=== PATIENT | female | born 1995 | race Caucasian/White ===

== ENCOUNTER 2022-02-19 11:47 | Outpatient (CLI) | payer OTHER, SELFPAY ==
[2022-02-19 12:20] LABS: Hematocrit 36.4 % (37.0-47.0); Hemoglobin 12.1 g/dL (12.0-15.0); Mean Corpuscular HGB Conc 33.2 g/dl (32-36); Mean Corpuscular Hemoglobin 31.5 pg (26-34); Mean Corpuscular Volume 94.8 fl (80-100); Mean Platelet Volume 11.7 fl (7.4-10.4); Platelet Count Result 168 k/mm3 (150-375); Red Blood Count 3.84 M/mm3 (4.2-5.4); Red Cell Distribution Width 13.5 % (11.5-14.5); White Blood Count 9.5 K/mm3 (4.5-10.0)
== END 2022-02-19 11:48 | disposition home or self-care (01) ==
LOC: ANHLAB 11:50
PROVIDERS: Visit Provider Obstetrics & Gynecology
DX: Z34.93 Encounter for supervision of normal pregnancy, unspecified, third trimester (principal); Z3A.00 Weeks of gestation of pregnancy not specified
CPT/HCPCS: 36415; 85027; 86850; 86900; 86901

== ENCOUNTER 2022-02-20 05:37 | Inpatient (IN) | payer OTHER, SELFPAY ==
--- NOTE | 2022-01-27 15:10 | PC.NURSE ---
Patient states baby is breech. Patient states Dr Berrios told her if baby does not turn head down by 02/03/22,she will be schedule for C/S at 39 wks Patient given requisition for pre-op lab if she is a C/S and was given copy of pre-op instructions
[2022-02-20] VITALS (57 sets, daily range): BP systolic 101–119; BP diastolic 36–75; PULSE 48–107; RESP 13–20; TEMP 36.2–36.6; O2SAT 94–100; BMI 31.6
--- OUTSIDE RECORDS SUMMARY | 2022-02-20 05:42 | XMS_ITS | Encounter Summary ---
:1995 Author Care Team Providers Name Role Phone Richi Lopez MD Primary Care Provider [phone] Reason for Visit None recorded. Assessment and Plan 1. Oligohydramnios ? US, obstetric, biophysical profile + non-stress test Discussion Note: None recorded.Patient educational handouts: No information available. Plan of Care Reminders Provider Appointments Surg Post Op 02/27/2022 Nanette breaux MD 1:15PM Lab None recorded. ? ? Referral None recorded. ? ? Procedures None recorded. ? ? Surgeries None recorded. ? ? Imaging US, Obstetric, Biophysical 02[facility]06[facility]2022 [facility] Profile + Non-stress Test Medications Name Start Date ? ? ? Medications Administered None recorded. Vitals None recorded. Results Lab Results None recorded. Allergies Code Code System Name Reaction Severity Onset NKDA ? ? ? Problems Name Status Onset Date Source ? Intrauterine Synechiae Active 07/23/2021 ? Vaccination Not Done Active 07/23/2021 ? Active 08/19/2021 ? Breech Presentation Active 01/02/2022 ? Placental Abnormality, Antepartum Active ? ? Excessive Weight Gain Active ? ? Procedures Date Name Performed by ? ? Removal of Ovarian Cyst(s) Information n ot available 02/03/2022 US, Obstetric, Follow-up [place] [address] [place] [address]
--- OUTSIDE RECORDS SUMMARY | 2022-02-20 05:42 | XMS_ITS ---
:1995 Author Care Team Providers Name Role Phone JACKELINE BORDEN MD Primary Care Provider [phone] Allergies Code Code System Name Reaction Severity Status Onset NKDA ? Medications Name Status Start Date Stop Date ? ? Gianvi (28) 3 mg-0.02 mg tablet Completed ? 04/19/2021 TAKE 1 TABLET BY MOUTH EVERY DAY Active ? Not available Problems Name Status Onset Date Source ? Intrauterine Synechiae Active 07/23/2021 ? Vaccination Not Done Active 07/23/2021 ? Active 08/19/2021 ? Breech Presentation Active 01/02/2022 ? Placental Abnormality, Antepartum Active ? ? Excessive Weight Gain Active ? ? Procedures Date Name Performed by ? ? Removal of Ovarian Cyst(s) Information n ot available 04/19/2021 US, Pelvis, Complete [place] [address] [place] [address] (Work Place) 08/19/2021 US, Obstetric, Nuchal Translucency Jose lopez [address] [place] [address] (Work Place) 10/15/2021 US, Obstetric, 2Nd or 3Rd Trimester Tamela milligan [address] [place] [address] (Work [address]) 11/18/2021 US, Obstetric, Follow-up [place] [address] [place] [address] [phone]
--- OUTSIDE RECORDS SUMMARY | 2022-02-20 05:42 | XMS_ITS | Encounter Summary ---
:1995 Author Care Team Providers Name Role Phone Richi Lopez MD Primary Care Provider [phone] Reason for Visit OB visit Assessment and Plan Assessment Note Patient is ___weeks . Discussed plan. 1. Routine care Discussion Note: None recorded.Patient educational handouts: No information available. Plan of Care Reminders Provider Appointments Surg Post Op 02/27/2022 1:15PM Nanette Berrios MD Lab None recorded. ? ? Referral None recorded. ? ? Procedures None recorded. ? ? Surgeries None recorded. ? ? Imaging None recorded. ? ? Medications Name Start Date ? ? ? Medications Administered None recorded. Vitals Height Weight BMI Blood Pressure 5 ft 4.5 in 196 lbs 33.1 kg/m2 110/74 mm[Hg] Results Lab Results None recorded. Allergies Code [...] n ot available 02/03/2022 US, Obstetric, Follow-up [place] [address]
--- OUTSIDE RECORDS SUMMARY | 2022-02-20 05:42 | XMS_ITS | Encounter Summary ---
:1995 Author Care Team Providers Name Role Phone Richi Lopez MD Primary Care Provider [phone] Reason for Visit None recorded. Assessment and Plan 1. Oligohydramnios ? US, obstetric, biophysical profile Discussion Note: None recorded.Patient educational handouts: No information available. Plan of Care Reminders Provider Appointments Surg Post Op 02/27/2022 Nanette breaux MD 1:15PM Lab None recorded. ? ? Referral None recorded. ? ? Procedures None recorded. ? ? Surgeries None recorded. ? ? Imaging US, Obstetric, Biophysical 02/13/2022 Jewels posey Profile Medications Name Start Date ? ? ? [...] n ot available 02/03/2022 US, Obstetric, Follow-up [place] [address] [place] [address]
--- OUTSIDE RECORDS SUMMARY | 2022-02-20 05:43 | XMS_ITS | Encounter Summary ---
:1995 Author Care Team Providers Name Role Phone Richi Lopez MD Primary Care Provider [phone] Reason for Visit OB visit Assessment and Plan 1. Routine care 2. Breech presentation Discussion Note: None recorded.Patient educational handouts: No [...] BMI Blood Pressure 5 ft 4.5 in 187 lbs 31.6 kg/m2 114/78 mm[Hg] Results Lab Results None recorded. Allergies [...] of Ovarian Cyst(s) Information n ot available 01/02/2022 US, Obstetric, Follow-up [place] [address] [place] [address] (Prlu
--- OUTSIDE RECORDS SUMMARY | 2022-02-20 05:43 | XMS_ITS | Encounter Summary ---
:1995 Author Care Team Providers Name Role Phone Richi Lopez MD Primary Care Provider [phone] Reason for Visit OB visit Assessment and Plan Assessment Note Patient is ___weeks . Discussed plan. Discussion Note: None recorded.Patient educational handouts: No [...] BMI Blood Pressure 5 ft 4.5 in 193 lbs 32.6 kg/m2 115/71 mm[Hg] Results Lab Results None recorded. Allergies [...] n ot available 01/02/2022 US, Obstetric, Follow-up [place] [address] [place] [address]
--- OUTSIDE RECORDS SUMMARY | 2022-02-20 05:43 | XMS_ITS | Encounter Summary ---
:1995 Author Care Team Providers Name Role Phone Richi Lopez MD Primary Care Provider [phone] Reason for Visit None recorded. Assessment and Plan 1. Routine care Discussion Note: None recorded.Patient [...] Ovarian Cyst(s) Information n ot available 01/02/2022 , Obstetric, Follow-up [place] [address] [place] [address] (Work Place) Vaccine List None recorded. Social History Tobacco Smoking Status Never Smoker What is the highest grade or level of school you [employer]
--- OUTSIDE RECORDS SUMMARY | 2022-02-20 05:43 | XMS_ITS | Encounter Summary ---
:1995 Author Care Team Providers Name Role Phone Richi Lopez MD Primary Care Provider [phone] Reason for Visit OB visit Assessment and Plan 1. Breech presentation ? section (SURG) Discussion Note: None recorded.Patient educational handouts: No information available. Plan of Care Reminders Provider Appointments Surg Post Op 02/27/2022 1:15PM Nanette Berrios MD Lab None recorded. ? ? Referral None recorded. ? ? Procedures None recorded. ? ? Surgeries Section (SURG) 02/20/2022 [facility] None recorded. ? ? Medications Name Start Date ? ? ? Medications Administered None recorded. Vitals Height Weight BMI Blood Pressure 5 ft 4.5 in 192 lbs 32.4 kg/m2 117/78 mm[Hg] Results Lab Results None recorded. Allergies [...] 02/03/2022 US, Obstetric, Follow-up [place] [address],
--- OUTSIDE RECORDS SUMMARY | 2022-02-20 05:43 | XMS_ITS | Encounter Summary ---
:1995 Author Care Team Providers Name Role Phone Richi Lopez MD Primary Care Provider [phone] Reason for Visit OB visit Assessment and Plan 1. Routine care 2. Placental abnormality, antepartum 3. Excessive weight gain Discussion Note: None recorded.Patient educational handouts: No [...] BMI Blood Pressure 5 ft 4.5 in 183 lbs 30.9 kg/m2 112/76 mm[Hg] Results Lab Results None recorded. Allergies [...] of Ovarian Cyst(s) Information n ot available Vaccine List None recorded. Social History Tobacco Smoking Status Never Smoker What is the highest grade or level of school you have [employer] [id number]
--- OUTSIDE RECORDS SUMMARY | 2022-02-20 05:43 | XMS_ITS | Encounter Summary ---
:1995 Author Care Team Providers Name Role Phone Richi Lopez MD Primary Care Provider [phone] Reason for Visit None recorded. Assessment and Plan 1. Reduced movement ? non-stress test Discussion Note: None recorded.Patient educational handouts: No information available. Plan of Care Reminders Provider Appointments Surg Post Op 02/27/2022 1:15PM Nanette Berrios MD Lab None recorded. ? ? Referral None recorded. ? ? Procedures None recorded. ? ? Surgeries None recorded. ? ? Imaging Non-stress Test 02/06/2022 [place] Medications Name Start Date ? ? ? [...] n ot available 02/03/2022 US, Obstetric, Follow-up [place] [address] [place] [address] (Work Place) 02/06/2022 US, Obstetric, Biophysical Profile + Jewels posey Non-
--- OUTSIDE RECORDS SUMMARY | 2022-02-20 05:43 | XMS_ITS | Encounter Summary ---
:1995 Author Care Team Providers Name Role Phone Richi Lopez MD Primary Care Provider [phone] Reason for Visit None recorded. Assessment and Plan 1. AND/OR placental disorder affe cting management of mother ? US, obstetric, follow-up Discussion Note: None recorded.Patient educational handouts: No information available. Plan of Care Reminders Provider Appointments Surg Post Op 02/27/2022 1:15PM Nanette Berrios MD Lab None recorded. ? ? Referral None recorded. ? ? Procedures None recorded. ? ? Surgeries None recorded. ? ? Imaging US, Obstetric, 01/02/2022 [place] Follow-up Medications Name Start Date ? ? ? [...] n ot available 01/02/2022 US, Obstetric, Follow-up [place] [address] [place] [address] (Work Place) Vaccine Lis
--- OUTSIDE RECORDS SUMMARY | 2022-02-20 05:43 | XMS_ITS | Encounter Summary ---
:1995 Author Care Team Providers Name Role Phone Richi Lopez MD Primary Care Provider [phone] Reason for Visit None recorded. Assessment and [...] None recorded. ? ? Imaging US, Obstetric, 02/03/2022 [place] Follow-up Medications Name Start Date ? ? [...] n ot available 02/03/2022 US, Obstetric, Follow-up [place] [address] [place] [address] (Work Place) Vaccine Lis
--- OUTSIDE RECORDS SUMMARY | 2022-02-20 05:43 | XMS_ITS | Encounter Summary ---
:1995 Author Care Team Providers Name Role Phone Richi Lopez MD Primary Care Provider [phone] Reason for Visit OB visit Assessment and Plan Assessment Note Patient is _34__weeks . Discuss ed plan. 1. Routine care Discussion Note: None [...] ft 4.5 in 192 lbs 32.4 kg/m2 115/72 mm[Hg] Results Lab Results None recorded. Allergies [...] n ot available 01/02/2022 , Obstetric, Follow-up [place] [address] [address]
[2022-02-20] MEDS: LACTATED RINGERS 1,000 ML 999 ML IV CONT (06:30)
--- NOTE | 2022-02-20 06:36 | WPDANESEPP ---
Anes - Eval Pre Procedure Procedure: Operation Date: 02/20/22 07:30 Proposed Procedures p Section - Nanette Berrios MD Date/Time: 02/20/22 06:36 Surgeon: Agustina Preop Diagnosis: Breech presentation Pre Op Diagnosis: C/S Patient Data Age: 26 Gender: F Height: 1.68 m Weight: 89 kg Last Vital Signs Pulse 69 02/20/22 06:31 BP 106/64 02/20/22 06:31 Allergies Allergy/AdvReac Type Severity Reaction Status Date / Time No Known Allergies Allergy Verified 01/27/22 14:52 Home Medications Medication Instructions Recorded Confirmed Type prenat.vits,camilla,[id number] 1 tablet PO HS 01/27/22 01/27/22 History HCG: positive Patient hx anesthesia problems: none Family hx anesthesia problems: none Results Review: All pre-operative results and documents have been reviewed as part of the pre-operative evaluation. FORMERLY [facility], [facility] Past Medical History Medical History (Updated 02/20/22 @ 06:38 by Atilio Wheeler CRNA) Breech presentation Overweight (BMI 25.0-29.9) and not yet delivered Family History Family History (Updated 01/27/22 @ 14:56 by Elier Lazo RN) Mother Crohn disease Sibling Crohn disease Congenital bicuspid aortic valve Social History Social History Substance use: never Spiritual care concerns: No Exam Day of Procedure 02/20/22 06:36 Patient weight: overweight Heart: regular rate and rhythm Lungs: clear to auscultation Airway: Mallampati scale class II Neurological: alert and oriented
--- NOTE | 2022-02-20 06:47 | LDADM ---
This patient, Shanta Hitchcock, was admitted to Labor/Delivery/Recovery 120 on 02/20/22 at 05:37. Plans for labor, pain management and were discussed with patient. Patient/family oriented to hospital policies and general routines including ID bracelet, bed and alarms, visiting hours, pain management, procedures, bathroom and other care routines, personal items, smoking policy, room service/diet and guest tray routines, security routines, and visiting hours. Patient/Family are encouraged to report perceived risks to care and to ask questions if they do not understand what they are told or what they should do. See OBIX for further documentation.
--- NOTE | 2022-02-20 06:56 | PM.IMHP ---
H&P: HPI History of Present Illness Date/Time: 02/20/22 06:56 Chief Complaint: breech Narrative: Shanta is a G1 at 39.1 for primary CS for breech. 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 Also bilobed placenta with band near CI. Review of Systems Review of Systems: All systems reviewed & are unremarkable except as noted in HPI and below PMFSH Past Medical History Medical History (Updated 02/20/22 @ 06:58 by Nanette Berrios MD) Breech presentation Overweight (BMI 25.0-29.9) and not yet delivered Family History Family History (Updated 01/27/22 @ 14:56 by Elier Lazo RN) Mother Crohn disease Sibling Crohn disease Congenital bicuspid aortic valve Social History Social History Smoking status: Never smoker Substance use: never Spiritual care concerns: No Meds Home Medications and Allergies Home Medications Medication Instructions Recorded Confirmed Type prenat.vits,camilla,[id number] 1 tablet PO HS 01/27/22 01/27/22 History Allergies Allergy/AdvReac Type Severity Reaction Status Date / Time No Known Allergies Allergy Verified 01/27/22 14:52 Vital Signs Vital Signs - 24 hr 02/20/22 05:58 02/20/22 06:01 02/20/22 06:16 Pulse Rate 72 76 73 Blood Pressure 109/64 110/72 106/68 Oxygen Delivery 02/20/22 06:31 02/20/22 06:46 02/20/22 06:45 Pulse Rate 69 73 Blood Pressure 106/64 109/69 Oxygen Delivery Room Air Exam Const: General: no acute distress Resp: Effort & Inspection: normal respiratory effort Auscultation: clear to auscultation bilaterally Cardio: Rate: regular rate Rhythm: regular rhythm GI: GI Palp: Yes Soft to palpation Extrem: General: normal to inspection Assessment and Plan Assessment and plan (1) Breech presentation: Code(s): O32.1XX0 - Maternal care for breech presentation, not applicable or unspecified Status: Acute Additional Plan Plan Primary CS Discussed RBA, pt consented, all questions answered. US still breech will proceed.
--- NOTE | 2022-02-20 07:05 | PC.NURSE ---
Dr. Berrios at bedside ultrasound confirmed breech presentation.
--- NOTE | 2022-02-20 07:18 | WPDHPUPDATE1 ---
History and Physical Update Update Date/Time: 02/20/22 07:18 History and Physical has been reviewed, including an updated exam of the patient. There are NO changes in the patient's condition. Risks, benefits, and alternatives have been discussed and questions answered. Patient agrees to proceed with procedure. US still breech
[2022-02-20] MEDS: ceFAZolin 2 GM/D5W 50 ML 2 GM/50 ML BAG IVPB (07:24)
[2022-02-20] MEDS: KETOROLAC 30 MG/ML VIAL (*BKC) IV PUSH (08:20)
[2022-02-20] MEDS: LACTATED RINGERS 1,000 ML 125 ML IV CONT (08:36)
--- NOTE | 2022-02-20 08:38 | PM.OBPRVD ---
OB - Delivery Note Procedure Delivery date: 02/20/22 Procedure: Procedures Operation Date: 02/20/22 07:30 <No data on this case meets the specified criteria> Primary Low transverse section Events: Breech Presentation Route of delivery: Specimen: Yes (placenta) Quantitative Blood Loss (ml): 1,035 Anesthesia type: Spinal Disposition: Floor Complications: none Narrative: The patient was taken to the OR and received spinal anesthesia. She was placed in dorsal supine position with left lateral tilt. SCDs and rodrigues were placed. She was prepped and draped in the normal sterile fashion. A Pfannensteil skin incision was made and carried through to the underlying layer of fascia. The fascia was incised in the midline and then extended laterally using Littlejohn scissors. The muscles were in the midline and the peritoneum was entered bluntly. The peritoneal incision was extended inferiorly and superiorly with care to avoid the bladder. The bladder blade was then inserted, the vesicouterine peritoneum was grasped, incised with Metzenbaum scissors, and a bladder flap created. The bladder blade was reinserted. A low transverse uterine incision was made with a scalpel and extended bluntly. AROM was performed and fluid was noted to be clear. The head was delivered, followed by the remainder of the baby. The baby's oropharynx was suctioned. After 30 seconds, the cord was clamped and cut and the infant was handed off. Cord blood was obtained and the placenta was then removed manually. The uterus was exteriorized. A moist lap sponge was used to curette the endometrium. The uterine incision was then closed with two layers of 0-Vicryl in a running, locking fashion. Several additional sutures were needed for hemostasis. Good hemostasis was noted. Hemaderm was placed. The posterior cul de sac was irrigated with normal saline and cleared of all clot and debris. The uterus was returned to the abdomen. Both lateral gutters were then irrigated. The rectus muscles were inspected and found to be hemostatic. The fascia was reapproximated using 0-Vicryl in running fashion. The subcutaneous tissue was irrigated with normal saline and made hemostatic with Bovie electrocautery. The skin was then closed with absorbable ranjit. Steri strips and a bandage were applied. The uterus was evacuated. The patient tolerated the procedure very well. All counts were correct. She was taken to the recovery room in good condition. Baby Date of : 02/20/22 Time of : 07:52 Weeks of gestation at delivery: 39 Infant gender: Female Weight (pounds): 7 Weight (ounces): 14 presentation: breech Placenta delivery description: Manual Removal Cord Vessel Description: 3 Vessels score one minute: 8 score five minutes: 9
--- NOTE | 2022-02-20 11:20 | PC.NURSE ---
Patient transferred to post room #290 per stretcher from labor and delivery. Support person present. Oriented to unit, room, information board, rooming in, admission packet and security measures. Patient verbalizes understanding.
[2022-02-20] MEDS: OXYTOCIN 30 UNITS/NS 500 ML 30 UNITS/500 ML BAG 125 UNITS IV CONT (11:30)
[2022-02-20] MEDS: DEXTROSE 5%/0.45% SOD CHL 1,000 ML 125 ML IV CONT (15:35)
[2022-02-20] MEDS: HYDROcodone/acetaminophen (*CRX) 5-325 MG TABLET 1 TAB PO (22:45)
[2022-02-20] MEDS: IBUPROFEN 600 MG TABLET PO (22:45)
[2022-02-21 03:15] VITALS: BP 109/57; PULSE 79; RESP 16; TEMP 36.2
[2022-02-21 05:04] LABS: Basophils Percent Auto 0.2 % (0.2-1.2); Eosinophils Percent Auto 0.2 % (0-4.4); Hematocrit 27.8 % (37.0-47.0); Hemoglobin 9.4 g/dL (12.0-15.0); Immature Granulocyte Absolute 0.05 K/mm3 (0.00-0.031); Immature Granulocyte Percent A 0.4 % (0-0.5); Lymphocytes Absolute Auto 1.59 K/mm3 (0.9-3.2); Lymphocytes Percent Auto 13.1 % (18.3-44.2); Mean Corpuscular HGB Conc 33.8 g/dl (32-36); Mean Corpuscular Hemoglobin 32.5 pg (26-34); Mean Corpuscular Volume 96.2 fl (80-100); Mean Platelet Volume 12.2 fl (7.4-10.4); Monocytes Absolute Auto 0.5 K/mm3 (0.1-0.6); Monocytes Percent Auto 4.2 % (2.6-8.5); Neutrophils Percent Auto 81.9 % (45.5-73.1); Platelet Count Result 144 k/mm3 (150-375); Red Blood Count 2.89 M/mm3 (4.2-5.4); Red Cell Distribution Width 13.7 % (11.5-14.5); White Blood Count 12.2 K/mm3 (4.5-10.0)
--- NOTE | 2022-02-21 05:59 | P.PNOB_ITS ---
OB - PN: Subj Subjective Date/time seen: 02/21/22 05:59 Patient comments: no complaints and pain well controlled baby status: doing well and nursing well [place] feeding status: exclusively breast feeding Narrative: POD 1 from primary CS. Doing well. Normal lochia. Eating, ambulating, rodrigues out. OB - PN: Obj Data Labs CBC & Chem 7: 02/21/22 03:18 Labs: Laboratory Results - last 24 hr 02/21/22 03:18 WBC 12.2 H RBC 2.89 L Hgb 9.4 L Hct 27.8 L MCV 96.2 MCH 32.5 MCHC 33.8 RDW 13.7 Plt Count 144 L MPV 12.2 H Immature Gran % (Auto) 0.4 Neut % (Auto) 81.9 H Lymph % (Auto) 13.1 L [place] % (Auto) 4.2 Eos % (Auto) 0.2 Baso % (Auto) 0.2 Lymph # (Auto) 1.59 [place] # (Auto) 0.5 Eos # (Auto) 0.0 Baso # (Auto) 0.0 Abs Immat Gran (auto) 0.05 H Absolute Neuts (auto) 10.0 H Absolute Nucleated RBC 0.0 Nucleated RBC % 0.0 OB - PN A/P Plan day: 1 Plan: routine care Time Spent With Patient Time: Total time spent is greater than 50% in coordination of care (as documented) at patient's floor/unit and/or counseling patient: Exam Narrative: NAD abdomen soft, appropriately tender, incision bandaged Extremities nontender with 1+ edema
[2022-02-21] MEDS: HYDROcodone/acetaminophen (*CRX) 5-325 MG TABLET 1 TAB PO ×3 (07:02→15:10)
[2022-02-21] MEDS: IBUPROFEN 600 MG TABLET PO ×2 (07:02→15:10)
[2022-02-21] MEDS: SIMETHICONE 80 MG TAB.CHEW PO (07:02)
[2022-02-21] MEDS: POLYSACCHARIDE IRON COMPLEX 150 MG CAPSULE PO ×2 (07:02→17:26)
[2022-02-21 07:20] VITALS: BP 103/60; PULSE 71; RESP 16; TEMP 36.8; O2SAT 100
[2022-02-21] MEDS: MULTIVIT/MIN/PREN/FOL AC/IRON TABLET 1 TAB PO (09:21)
[2022-02-21] MEDS: DOCUSATE SODIUM 100 MG CAPSULE PO ×2 (09:21→17:26)
--- NOTE | 2022-02-21 12:21 | WPDANLDPN2 ---
Anes-Prog Note L&D Date/Time: 02/21/22 12:21 Comfortable throughout: section Neuraxial method: spinal Epidural/Spinal procedure site: clean & non-tender Neuro status: Neuro function grossly intact. Cardiovascular status: normal Respiratory status: normal Airway patency: baseline Mental status: baseline Post-Op hydration status: normal Vital Signs: Last Vital Signs Temp 98.2 F 02/21/22 07:20 Pulse 71 02/21/22 07:20 Resp 16 02/21/22 07:20 BP 103/60 02/21/22 07:20 Pulse Ox 100 02/21/22 07:20 O2 Del Method Room Air 02/21/22 07:20 Pain score (VAS): 3 I/O: Intake & Output 02/20/22 02/21/22 02/21/22 23:59 07:59 15:59 Intake Total 2100 120 Output Total 4000 2600 Balance -1900 -2600 120 Patient feedback: Patient satisfied with anesthetic care.
--- NOTE | 2022-02-21 12:21 | WPDANLDNPN2 ---
Anes-Prog Note L&D-Neuraxial Date/Time: 02/21/22 12:21 Neuraxial medications: intrathecal PF morphine Opiod-related complaints: none Patient feedback: Patient satisfied with post-operative pain management.
[2022-02-21 20:30] VITALS: PULSE 88; RESP 18; O2SAT 99
[2022-02-21 20:34] VITALS: BP 140/61; PULSE 88; RESP 18; TEMP 37.1; O2SAT 99
[2022-02-22] MEDS: IBUPROFEN 600 MG TABLET PO ×3 (01:06→13:02)
[2022-02-22] MEDS: SIMETHICONE 80 MG TAB.CHEW PO (01:07)
[2022-02-22] MEDS: HYDROcodone/acetaminophen (*CRX) 5-325 MG TABLET 1 TAB PO ×4 (01:07→17:34)
[2022-02-22 07:10] VITALS: BP 99/57; PULSE 80; RESP 16; TEMP 36.9; O2SAT 99
[2022-02-22] MEDS: DOCUSATE SODIUM 100 MG CAPSULE PO ×2 (08:50→17:34)
[2022-02-22] MEDS: MULTIVIT/MIN/PREN/FOL AC/IRON TABLET 1 TAB PO (08:50)
[2022-02-22] MEDS: POLYSACCHARIDE IRON COMPLEX 150 MG CAPSULE PO ×2 (08:50→17:34)
--- NOTE | 2022-02-22 11:44 | PM.OBPNVD ---
OB - PN: Subj Subjective Date/time seen: 02/22/22 11:44 Patient comments: no complaints, pain well controlled, tolerating diet and flatus present [place] baby status: doing well and nursing well feeding status: exclusively breast feeding OB - PN: Obj Data Labs CBC & Chem 7: 02/21/22 03:18 OB - PN A/P Plan day: 2 Plan: routine care Comments: DC home tomorrow Time Spent With Patient Time: Total time spent is greater than 50% in coordination of care (as documented) at patient's floor/unit and/or counseling patient: Exam Narrative: NAD abdomen soft, appropriately tender, incision CDI Extremities nontender with 1+ edema
[2022-02-22 14:25] VITALS: BP 122/79; PULSE 98; O2SAT 100
--- NOTE | 2022-02-22 14:25 | PC.NURSE ---
This patient is c/o nausea and lightheadedness after showering. Vaginal bleeding small and VSS at this time. Patient currently sitting in chair and starting to feel a bit better after drinking some orange juice. Patient had a meal this morning and was going to try to eat lunch now. Patient has not had much sleep since the delivery on 02/20/22. [id number] Patient reports feeling better and back in bed to get some sleep while infant goes to the nursery for now.
[2022-02-22 21:10] VITALS: BP 124/70; PULSE 81; RESP 18; TEMP 36.8; O2SAT 100
--- NOTE | 2022-02-23 07:12 | PM.OBPNVD ---
OB - PN: Subj Subjective Date/time seen: 02/23/22 07:12 Patient comments: no complaints baby status: nursing well feeding status: exclusively breast feeding Narrative: POD 3 from primary CS. Doing well. Normal lochia. Eating, ambulating, rodrigues out. + flatus. OB - PN: Obj Data Labs CBC & Chem 7: 02/21/22 03:18 OB - PN A/P Assessment and Plan (1) delivery delivered: Code(s): O82 - Encounter for delivery without indication Status: Acute Plan day: 3 Plan: routine care and discharge home Comments: DC instructions given. Time Spent With Patient Time: Total time spent is greater than 50% in coordination of care (as documented) at patient's floor/unit and/or counseling patient: Exam Narrative: NAD abdomen soft, appropriately tender, incision bandaged Extremities nontender with 1+ edema
--- NOTE | 2022-02-23 07:17 | P.DS_ITS ---
DS: Admitting Diagnosis Discharge Date 02/23/22 Admitting Diagnosis IUP 39w, breech DS: Discharge Diagnosis Discharge Diagnosis (1) delivery delivered: Code(s): O82 - Encounter for delivery without indication Status: Acute OB - DS: Summary Hospital Course Hospital Course: Shanta was admitted for primary CS due to breech. She had an uncomplicated delivery and course. She was DCed home on POD3. OB Procedures : Ultrasound OB Procedures Intrapartum: OB Procedures: : None Peripartum Data Infant Delivery Method: Section Procedures: Procedures Operation Date: 02/20/22 07:30 Actual Procedure Side Surgeon p Section Nanette Berrios MD complications: none Status at Discharge Functional status at discharge: independent ambulation Time Spent with Patient Time attestation: Total time spent providing and/or coordinating discharge services: Exam Narrative: NAD abdomen soft, appropriately tender, incision CDI DS: Data Data Completed and Pending Pending studies at discharge: Pending at discharge 02/20/22 07:54 Surgical [PTH] Routine Discharge Plan Discharge Attending physician on discharge: Nanette Berrios Discharging Clinician: Nanette Berrios Anticipated Discharge Date/Time: 02/23/22 11:00 Patient Disposition: Home, Self-Care Activity: may shower, may drive after 2 weeks and pelvic rest Diet: regular Patient Instructions: Antibiotic Form Stand Alone Forms: General Discharge Information Follow-up/Referrals: Nanette Berrios MD [Physician] - 1 Week Discharge Medications: New hydrocodone-acetaminophen 5-325 mg Tablet 1 tablet PO Q4-5H PRN (Reason: Moderate Pain (4-6)) Qty: 30 0RF docusate sodium 100 mg Capsule 100 mg PO BID PRN (Reason: constipation) Qty: 60 0RF ibuprofen 600 mg Tablet 600 mg PO Q6H PRN (Reason: Cramping) Qty: 60 0RF Continued #2 Tablet 1 tablet PO HS Date of admission: 02/20/22 05:37 Primary Care Provider: PHYSICIAN,PUMPING STATION SUPERVISOR Admitting Provider: Nanette Berrios Attending physician on admission: Nanette Berrios Condition: Stable
[2022-02-23 07:33] LABS: Rapid Plasma Reagin Non-Reactive (NonReactive)
[2022-02-23 07:45] VITALS: BP 114/50; PULSE 90; RESP 18; TEMP 36.6; O2SAT 100
[2022-02-23] MEDS: MULTIVIT/MIN/PREN/FOL AC/IRON TABLET 1 TAB PO (07:57)
[2022-02-23] MEDS: DOCUSATE SODIUM 100 MG CAPSULE PO (07:57)
[2022-02-23] MEDS: POLYSACCHARIDE IRON COMPLEX 150 MG CAPSULE PO (07:57)
[2022-02-23] MEDS: IBUPROFEN 600 MG TABLET PO (07:57)
--- NOTE | 2022-02-23 09:03 | PC.NURSE ---
Patient viewed the discharge video Mother & Baby Care, The First Two Weeks . Patient was given the opportunity and encouraged to ask questions. Patient verbalized understanding of information shared and has been given the mother/baby guide for home reference.
--- NOTE | 2022-02-23 15:40 | PC.NURSE ---
[id number] Introductions were made, then consulted with patient to assess needs related to . Mother led the conversation with her experience feeding her so far. Mother works well with her with encouragement and education. Encouraged understanding of the benefits of skin to skin (unwrapping and placing vertically on her chest), responsive feeding and how to watch for early feeding signs, frequency of feeding on demand about every 8-12 times in 24 hours (every 2-3 hours), milk production, duration of feeding, signs of adequate intake/output and how to record on the feeding sheet. Reviewed positioning and ear, shoulder, hip alignment, supporting the breast, asymmetrical latch (off-center), and leading with the chin with a big open side gape. Infant was fussy and resisting effective latching. Pumped breastmilk was a tool to calm baby down to breastfeed, then infant latched optimally to the right breast in football position. Education given to mother of how to visualize suck/swallow ratios and drinking at the breast. Infant was able to maintain latch without discomfort to mother. Nipple care reviewed with optimal latch and good positioning. Resources used to facilitate learning were used with the tool. Mother is feeding appropriately for growth of infant and understands stimulating to eat if needed. Infant has had appropriate feedings in the last 24 hours meets the outcomes for weight, output and jaundice at this time. Mother states she is confident to continue effectively /pumping/supplementing her at home if needed. Patient had decided to use her breast pump from home to stimulate milk production. Instructions given on cleaning, care, usage, that there should be no pain, pumping schedule for milk production, collection, and storage of human milk. Parents are encouraged to record pumping schedule on the feeding sheet. Reviewed stimulation for adequate milk production every 3 hours (8 times in 24 hours). Mother has copious colostrum that has been pumped within the last 4 hours. Mother voiced understanding of responsive feedings, stimulating with skin to skin, hand expressed colostrum, touch, talking to to encourage if it has been 2 -3 hours since the start of the last , to call if infant does not latch or there is discomfort with . [id number] Skin to skin is encouraged to reorganize infant to settle down and breastfeed. After working with on feeding cues, organizing, and latching optimally, then infant latched to the left breast using football positioning. After effectively with a 1:1 suck/swallow ratio was detached and led to the right breast. latched and suck/swallow ratios were 3:1. Reinforced understanding of milk production, transition of milk, signs of adequate intake, prevention/relief of engorgement, responsive after visualizing feeding cues, the different methods of stimulating infant to breastfeed 2-3 hours after the start of the last feeding, community resources, medication information reviewed per [employer] and when to call a provider using the resource of the mom and baby guide/[facility] website. Mother voiced understanding of the education shared. Reported to the primary RN.
== END 2022-02-23 14:50 | disposition home or self-care (01) | DRG 788 ==
LOC: ANHLDR 05:41 → ANHOB2 11:25
PROVIDERS: Admitting Provider Obstetrics & Gynecology; Visit Provider Obstetrics & Gynecology
PROC: 10D00Z1 Extraction of Products of Conception, Low, Open Approach (ICD-10-PCS; CPT 59514; principal; 2022-02-20 07:30)
DX: O32.1XX0 Maternal care for breech presentation, not applicable or unspecified (principal); O43.193 Other malformation of placenta, third trimester; Z3A.39 39 weeks gestation of pregnancy; Z37.0 Single live birth; Z14.1 Cystic fibrosis carrier
CPT/HCPCS: 36415; 59025; 85025; 85027; 86592; 86850; 86900; 86901; 88307; A9270; J0690; J1885; J2210; J2274; J2405; J2590; J7120

== ENCOUNTER 2024-08-03 19:35 | Observation (INO) | payer BC, SELFPAY ==
[2024-08-03] VITALS (30 sets, daily range): BP systolic 103–127; BP diastolic 57–67; PULSE 69–120; TEMP 37.1; O2SAT 78–100; BMI 27.9
--- NOTE | 2024-08-03 19:35 | PC.NURSE ---
Pt arrives to unit with right upper quadrant pain, heartburn, diarrhea, nausea, vomiting, and tightening in upper abdomen.
--- NOTE | 2024-08-03 20:13 | OBADM ---
This patient, Shanta Hitchcock, admitted to the OB room OB Post 116 for observation. Patient/family oriented to hospital policies and general routines including ID bracelet, bed and alarms, visiting hours, pain management, procedures, bathroom and other care routines, personal items, smoking policy, room service/diet, and visiting hours. Patient/Family are encouraged to report perceived risks to care and to ask questions if they do not understand what they are told or what they should do.
[2024-08-03 20:37] LABS: Basophils Percent Auto 0.2 % (0.2-1.2); Eosinophils Percent Auto 0.2 % (0-4.4); Hematocrit 40.8 % (37.0-47.0); Hemoglobin 14.2 g/dL (12.0-15.0); Immature Granulocyte Absolute 0.05 K/mm3 (0.00-0.031); Immature Granulocyte Percent A 0.4 % (0-0.5); Lymphocytes Absolute Auto 0.63 K/mm3 (0.9-3.2); Lymphocytes Percent Auto 4.8 % (18.3-44.2); Mean Corpuscular HGB Conc 34.8 g/dl (32-36); Mean Corpuscular Hemoglobin 32.6 pg (26-34); Mean Corpuscular Volume 93.6 fl (80-100); Mean Platelet Volume 11.3 fl (7.4-10.4); Monocytes Absolute Auto 0.5 K/mm3 (0.1-0.6); Monocytes Percent Auto 3.5 % (2.6-8.5); Neutrophils Absolute Auto 11.9 K/mm3 (1.3-6.7); Neutrophils Percent Auto 90.9 % (45.5-73.1); Platelet Count Result 172 k/mm3 (150-375); Red Blood Count 4.36 M/mm3 (4.2-5.4); Red Cell Distribution Width 13.4 % (11.5-14.5); White Blood Count 13.1 K/mm3 (4.5-10.0)
[2024-08-03 20:41] LABS: Add Urine Microscopic? YES; Appearance Urine Clear (Clear); Bacteria Urine Rare /hpf; Bilirubin Urine Negative (Negative); Blood Urine Negative (Negative); Color Urine Yellow (Yellow); Glucose Urine UA Negative (Negative); Ketones Urine 2+ mg/dL (Negative); Leukocyte Esterase Ur Negative LEU/UL (Negative); Nitrate Urine Negative (Negative); Non Pathogenic Casts 0-2; Protein Urine Trace mg/dL (Negative); RBC Urine 0-2 /hpf (0-2); Specific Grav Ur 1.023 (1.001-1.035); Squamous Epithelial Cell Urine Few /hpf (Few); Urobilinogen Urine 0.2 mg/dL (<2.0); WBC Urine 0-5 /hpf (0-3)
--- NOTE | 2024-08-03 20:44 | PC.NURSE ---
Called Tye Moreno CNM, update on pt, RUQ pain, heartburn, diarrhea, nausea, vomiting, and contractions. Orders received for urinalysis, CBC, CMP, and uric acid, administer D5LR bolus, LR at 250 ml/hr after D5LR bolus, zofran 2 ml, and pepcid 2 ml, call with lab results.
[2024-08-03 20:50] LABS: Alanine Aminotransferase 14 U/L (6-35); Albumin Level 3.8 g/dL (3.5-5.1); Alkaline Phosphatase 85 U/L (38-126); Anion Gap 3 mmol/L (4-12); Aspartate Amino Transferase 21 U/L (14-36); Bilirubin,Total 0.8 mg/dL (0.2-1.3); Blood Urea Nitrogen 10 mg/dL (7-17); Calcium 8.2 mg/dL (8.4-10.2); Carbon Dioxide 21 mmol/L (22-30); Chloride 108 mmol/L (98-107); Estimated CRCL calculation 126 ml/min; Estimated Glomerular Filt Rate > 60; Glucose 91 mg/dL (65-110); Potassium 3.9 mmol/L (3.4-5.0); Sodium 132 mmol/L (137-145); Uric Acid 4.6 mg/dL (2.5-7.5)
[2024-08-03] MEDS: DEXTROSE 5%/LACTATED RINGERS 1,000 ML 999 ML IV CONT (21:14)
[2024-08-03] MEDS: ONDANSETRON INJ 4 MG/2 ML VIAL IV PUSH (21:15)
[2024-08-03] MEDS: FAMOTIDINE 20 MG/2 ML VIAL IV PUSH (21:17)
--- NOTE | 2024-08-03 21:53 | PC.NURSE ---
Called Tye Moreno CNM, update on pt, contractions, nausea, and labs. Orders received to monitor overnight with LR continuous 250 ml/hr and administer ambien 5 mg as needed to sleep, Tye Moreno will round on pt in the morning.
[2024-08-03] MEDS: LACTATED RINGERS 1,000 ML 250 ML IV CONT (22:19)
[2024-08-04] VITALS (10 sets, daily range): BP systolic 100–125; BP diastolic 39–63; PULSE 91–145; TEMP 36.8–36.9; O2SAT 78–100
[2024-08-04] MEDS: LACTATED RINGERS 1,000 ML 250 ML IV CONT ×2 (02:21→06:24)
[2024-08-04] MEDS: ONDANSETRON INJ 4 MG/2 ML VIAL IV PUSH (03:27)
--- NOTE | 2024-08-04 06:30 | PC.NURSE ---
Report given to Cesar Carroll RN.
--- NOTE | 2024-08-04 07:43 | P.HP_ITS ---
H&P: HPI History of Present Illness Date/Time: 08/04/24 07:43 Chief Complaint: pt c/o nausea and vomiting x 1 day, stomach bug going around in the family, cant keep anything down. this am still occasional vomiting and diarrhea often. afebrile, no pain, or urinary symptoms. complicated by history of previous section Review of Systems Review of Systems: All systems reviewed & are unremarkable except as noted in HPI and below PMFSH Past Medical History Medical History (Updated 08/04/24 @ 07:51 by Shanta Moreno CNM) Overweight (BMI 25.0-29.9) Breech presentation and not yet delivered Family History Family History (Updated 01/27/22 @ 14:56 by Elier Lazo RN) Mother Crohn disease Sibling Crohn disease Congenital bicuspid aortic valve Social History Social History Smoking status: Never smoker Substance use: never Spiritual care concerns: No Meds Home Medications and Allergies Home Medications ?Medication ?Instructions ?Recorded ?Confirmed ?Type prenat.vits,camilla,[id number] 1 tablet PO HS 01/27/22 08/03/24 History docusate sodium 100 mg capsule 100 mg PO BID PRN constipation #60 02/23/22 Rx caps hydrocodone 5 mg-acetaminophen 325 1 tablet PO Q4-5H PRN Moderate 02/23/22 Rx mg tablet Pain (4-6) #30 tabs ibuprofen 600 mg tablet 600 mg PO Q6H PRN Cramping #60 tabs 02/23/22 Rx Allergies Allergy/AdvReac Type Severity Reaction Status Date / Time No Known Allergies Allergy Verified 08/03/24 21:00 Vital Signs Vital Signs - 24 hr 08/03/24 20:06 08/03/24 20:06 08/03/24 20:11 Temperature Pulse Rate Blood Pressure Pulse Oximetry 78 L 83 L 100 Oxygen Delivery 08/03/24 20:16 08/03/24 20:21 08/03/24 20:23 Temperature Pulse Rate Blood Pressure Pulse Oximetry 100 100 Oxygen Delivery Room Air 08/03/24 20:24 08/03/24 20:26 08/03/24 20:30 Temperature Pulse Rate 88 85 Blood Pressure 115/67 127/64 Pulse Oximetry 99 Oxygen Delivery 08/03/24 20:31 08/03/24 20:36 08/03/24 20:41 Temperature Pulse Rate Blood Pressure Pulse Oximetry 100 100 100 Oxygen Delivery 08/03/24 20:46 08/03/24 20:51 08/03/24 20:56 Temperature Pulse Rate Blood Pressure Pulse Oximetry 99 100 100 Oxygen Delivery 08/03/24 21:00 08/03/24 21:01 08/03/24 21:06 Temperature Pulse Rate 81 Blood Pressure 103/67 Pulse Oximetry 100 82 L Oxygen Delivery 08/03/24 21:07 08/03/24 21:09 08/03/24 21:09 Temperature Pulse Rate Blood Pressure Pulse Oximetry 83 L 84 L 99 Oxygen Delivery 08/03/24 21:11 08/03/24 21:16 08/03/24 21:17 Temperature 37.1 C Pulse Rate Blood Pressure Pulse Oximetry 99 98 Oxygen Delivery 08/03/24 21:20 08/03/24 21:25 08/03/24 21:30 Temperature Pulse Rate Blood Pressure Pulse Oximetry 98 100 99 Oxygen Delivery 08/03/24 21:35 08/03/24 21:40 08/03/24 21:45 Temperature Pulse Rate Blood Pressure Pulse Oximetry 100 100 100 Oxygen Delivery 08/03/24 21:50 08/03/24 21:55 08/03/24 21:59 Temperature Pulse Rate 85 Blood Pressure 105/57 L Pulse Oximetry 100 100 Oxygen Delivery 08/04/24 02:29 08/04/24 06:26 08/04/24 06:27 Temperature 36.8 C 36.9 C Pulse Rate 93 100 Blood Pressure 104/57 L 100/44 L Pulse Oximetry 99 98 Oxygen Delivery Exam Const: General: cooperative, healthy appearing and comfortable Resp: Effort & Inspection: normal respiratory effort Cardio: Rate: regular rate GI: Other: gravid. soft Back/Spine/Pelvis: Back: no CVA tenderness Skin: General skin exam: normal color Neuro: General: patient oriented x3 Extrem: General: normal to inspection Psych: Appearance: grossly normal H&P: Results Labs Labs: Short CBC 08/03/24 Range/Units 20:12 WBC 13.1 H (4.5-10.0) K/mm3 Hgb 14.2 D (12.0-15.0) g/dL Hct 40.8 (37.0-47.0) % Plt Count 172 (150-375) k/mm3 [facility] 08/03/24 20:12 Sodium 132 L Potassium 3.9 Chloride 108 H Carbon Dioxide 21 L BUN 10 Creatinine 0.60 L Glucose 91 Calcium 8.2 L Liver Function 08/03/24 Range/Units 20:12 Total Bilirubin 0.8 (0.2-1.3) mg/dL AST 21 (14-36) U/L ALT 14 (6-35) U/L Alkaline Phosphatase 85 (38-126) U/L Albumin 3.8 (3.5-5.1) g/dL Urine 08/03/24 Range/Units 20:12 Urine Color Yellow (Yellow) Urine Appearance Clear (Clear) Urine pH 6.0 (5.0-9.0) Ur Specific [place] 1.023 (1.001-1.035) Urine Protein Trace (Negative) mg/dL Urine Glucose (UA) Negative (Negative) mg/dL Assessment and Plan Assessment and plan (1) Gastritis: Code(s): K29.70 - Gastritis, unspecified, without bleeding Status: Acute Assessment and Plan: continue hydration and support NST q shift
[2024-08-04] MEDS: LOPERAMIDE HCL 2 MG CAPSULE PO (08:01)
[2024-08-04] MEDS: THIAMINE HCL INJ 100 MG, FOLIC ACID INJ 1 MG, MAGNESIUM SULFATE INJ 1 GM, MULTIVITAMINS... IV CONT (09:10)
--- NOTE | 2024-08-04 09:42 | PC.NURSE ---
0900--Pt in shower. Reminded to pull emergency cord if dizzy.
--- NOTE | 2024-08-04 09:43 | PC.NURSE ---
0930--Pt requests crackers to eat and is taking small sips of water with no vomiting.
[2024-08-04] MEDS: FAMOTIDINE 20 MG/2 ML VIAL IV PUSH (10:23)
--- NOTE | 2024-08-04 13:44 | PC.NURSE ---
1300--Pt reports feeling better. Eating solid food. Denies any recent vomiting or diarrhea.
--- NOTE | 2024-08-07 19:57 | PM.OBDSVD ---
DS: Admitting Diagnosis Discharge Date 08/04/24 Admitting Diagnosis vomiting OB - DS: Summary OB Procedures : None OB Procedures Intrapartum: Other (undelivered) OB Procedures: : None Time Spent with Patient Time attestation: Total time spent providing and/or coordinating discharge services: Discharge Plan Discharge Attending physician on discharge: Shanta Moreno Consulting providers: Shanta Moreno Discharging Clinician: Shanta Moreno Activity: as tolerated Diet: as tolerated Discharge Instructions: OB ANTEPARTUM DISCHARGE INSTRUCTIONS This information is given to help you properly care for yourself at home after your discharge from the hospital. Follow these instructions until your doctor tells you otherwise. DIET: Small Frequent Feedings Drink at Least Eight 8-Ounce Glasses of Caffeine-Free Beverages Daily Additional Diet Instructions: ACTIVITY: As Tolerated Additional Activity Instructions: RETURN TO LABOR AND DELIVERY IF YOU HAVE: Any Change In Baby's Normal Movement Pattern Any Leakage of Fluid Contractions 3-5 Minutes Apart with Increasing Intensity Vaginal Bleeding Additional Reasons to Return to Labor and Delivery: Contractions may feel like abdominal pain, tightening, cramping, pressure, back ache, or thigh ache. OTHER INSTRUCTIONS: FOLLOW-UP CARE: Keep Next Scheduled Appointment To see in/on Valuables released to patient or family? N/A Medications from home returned to patient? N/A I Acknowledge Receipt of and Understand the Above Instructions IF YOU HAVE ANY QUESTIONS REGARDING THESE INSTRUCTIONS, PLEASE CALL [phone]. IF PROBLEMS ARISE, CALL YOUR PROVIDER. IF EMERGENCY CARE IS NEEDED, [facility] EMERGENCY ROOM IS AVAILABLE 24 HOURS A DAY. Patient Language: Danish Discharge Medications: No Action prenat.vits,camilla,[id number] Tablet 1 tablet PO HS docusate sodium 100 mg Capsule 100 mg PO BID PRN (Reason: constipation) Qty: 60 0RF hydrocodone-acetaminophen 5-325 mg Tablet 1 tablet PO Q4-5H PRN (Reason: Moderate Pain (4-6)) Qty: 30 0RF ibuprofen 600 mg Tablet 600 mg PO Q6H PRN (Reason: Cramping) Qty: 60 0RF Date of admission: 08/03/24 19:35 Primary Care Provider: PHYSICIAN,TEACHER HOME [employer]ERAPY Admitting Provider: Refugio Rogers Attending physician on admission: Refugio Rogers
== END 2024-08-04 15:05 | disposition home or self-care (01) ==
PROVIDERS: Admitting Provider Obstetrics & Gynecology; Visit Provider Obstetrics & Gynecology
DX: O99.613 Diseases of the digestive system complicating pregnancy, third trimester (principal); K29.70 Gastritis, unspecified, without bleeding; Z3A.37 37 weeks gestation of pregnancy
CPT/HCPCS: 36415; 59025; 80053; 81001; 84550; 85025; 96361; 96374; 96375; 96376; A9270; G0378; G0379; J2405; J3411; J3475; J7030; J7120; J7121